=== PATIENT | female | born 1970 | race Caucasian/White ===

== ENCOUNTER 2024-12-22 11:09 | Outpatient (OUT) | payer OTHER, SELFPAY ==
--- NOTE | 2024-12-22 11:09 | ECG_ITS ---
[facility] Test Date: 2024-12-22 Pat Name: ANDRY FANG Department: Room: - Gender: Female Head Porter: : 1970 Requested By: JUANITO CORONA Order Number: [id number] Reading MD: DEEPAK ESPARZA Measurements Intervals [place] Rate: 72 P: 51 [place]: 145 QRS: 44 QRSD: 86 T: 60 QT: 366 QTc: 402 Interpretive Statements SINUS RHYTHM No previous ECG available for comparison Electronically Signed On 12-22-2024 16:01:35 EDT by DEEPAK ESPARZA
== END 2024-12-22 11:10 | disposition home or self-care (01) ==
PROVIDERS: PCP Family Medicine; Visit Provider Obstetrics & Gynecology
DX: Z01.810 Encounter for preprocedural cardiovascular examination (principal); N95.0 Postmenopausal bleeding
CPT/HCPCS: 93005

== ENCOUNTER 2025-01-31 13:25 | Outpatient (OUT) | payer OTHER, SELFPAY ==
--- OUTSIDE RECORDS SUMMARY | 2024-08-12 07:00 | XMS_ITS ---
Author Organization The [facility] in [place] Address [address] [place] [address] Care Team Providers Care Manufacturing Plant Manager Name Role Phone Eamon Paz DO Primary Care Provider Unavailab Georgette Baer Unavailable [phone] REASON FOR VISIT bm cyst removal chest Encounters Encounter Location Date Provider Diagnosis [facility] [address] [place] [address] 08/12/2024 Georgette Astudillo Neoplasm of uncertai n behavior of skin D48.5 ; Other specified erythematous conditions L53.8 ; Other disturbances of skin sensation R20.8 and Actinic keratosis L57.0 Assessments Encounter Date Diagnosis (ICD Code) Assessment Notes Treatment Notes Treatment Clinical Notes Section Notes 08/12/2024 Neoplasm of uncertain behavior of skin (ICD-10 - D48.5) 08/12/2024 Other specified erythematous conditions (ICD-10 - L53.8) 08/12/2024 Other disturbances of skin sensation (ICD-10 - R20.8) 08/12/2024 Actinic keratosis (ICD-10 - L57.0) Plan Of Treatment No Information Progress Notes * FATIMAHDEBBIE Rosey ADOB:1970 (54 yo F)Acc No.[id number]:08/12/2024 UNLOCKED PROGRESS NOTE Patient: Rosey CHOI Provider: Ida Astudillo DNP, OPERATIONS LOGISTICS ANALYST-C :1970 A ge:53 Y S ex:Female Date:08/12/2024 Address:[address] [place] [address], [id number] Pcp:Eamon Paz, DO Check In:10:54 AM ESTCheck O ut:11:41 AM EST Subjective: * Chief Complaints: * 1 . Bm cyst removal chest. * Medical History: Objective: * Vitals: Assessment: * Assessment: 1. N eoplasm of uncertain behavior of skin - D48.5 2 . O ther specified erythematous conditions - L53.8 3 . O ther disturbances of skin sensation - R20.8? 4. A ctinic keratosis - L57.0 Plan: * Treatment: * Procedure Codes: 2030 LAYER BRAVO WOUND TRUNK,EXT, TthNo: 59, Srfc: , Modifiers: 59 , 78422 BENIGN LESION 1.12.0 CM, 16552 DESTROY BENIGN/PREMLG LESION, TthNo: 59, Srfc: , Modifiers: 59 * * Electronic signature of Georgette Astudillo DNP on 01/31/2025 at 01:28 PM EDT Sign off status: Pending Visit Status: Leigh HANNA (Check Out) * Provider: Ida Astudillo DNP, OPERATIONS LOGISTICS ANALYST-C Date: 0 08/12/2024 Generated for Kevin clinton/Chasity/eTransmitting on: 1 01:28 PM EDT
--- OUTSIDE RECORDS SUMMARY | 2024-08-12 07:00 | XMS_ITS ---
Author Organization [facility] in [place] Address [address] [place] [address] Care Team Providers Care Rural Mail Carrier Name Role Phone Eamon Paz DO Primary Care Provider Unavailab Georgette Baer Unavailable [phone] REASON FOR VISIT bm botox gummy smile Encounters Encounter Location Date Provider Diagnosis [facility] [address] [place] [address] 08/12/2024 Georgette Astudillo Encounter for procedure for purposes other than remedying health state, unspecified Z41.9 Assessments Encounter Date Diagnosis (ICD Code) Assessment Notes Treatment Notes Treatment Clinical Notes Section Notes 08/12/2024 Encounter for procedure for purposes other than remedying health state, unspecified (ICD-10 - Z41.9) Plan Of Treatment No Information Progress Notes * FATIMAHRosey LEWIS ADOB:1970 (54 yo F)Acc No.[id number]:08/12/2024 UNLOCKED PROGRESS NOTE Patient: Rosey CHOI Provider: Ida Astudillo DNP, PBX TECHNICIAN-C :1970 A ge:53 Y S ex:Female Date:08/12/2024 Address:[address] [place] [phone] Pcp:Eamon Paz DO Check In:10:54 AM ESTCheck O ut:11:41 AM EST Subjective: * Chief Complaints: * 1 . Bm botox gummy smile. * Medical History: Objective: * Vitals: Assessment: * Assessment: 1. E ncounter for procedure for purposes other than remedying health state, unspecified - Z41.9? Plan: * Treatment: * Procedure Codes: B OTOX Cosmetic Botox * * Electronic signature of Georgette Astudillo DNP on 01/31/2025 at 01:27 PM EDT Sign off status: Pending Visit Status: C HK (Check Out) * Provider: Ida Astudillo DNP, PBX TECHNICIAN-C Date: 0 08/12/2024 Generated for Kevin clinton/Chasity/Iris on: 1 01:27 PM EDT
--- OUTSIDE RECORDS SUMMARY | 2024-08-26 10:45 | XMS_ITS ---
Author Organization [facility] in [place] Address [address] [place] [address] Care Team Providers Care Ski Tow Operator Name Role Phone Eamon Paz DO Primary Care Provider Unavailab Georgette Baer Unavailable [phone] REASON FOR VISIT bm TCA peel 1 Encounters Encounter Location Date Provider Diagnosis [facility] [address] [place] [address] 08/26/2024 Georgette Astudillo Other skin changes due to chronic exposure to nonionizing radiation L57.8 ; Encounter for removal of sutures Z48.02 and Actinic keratosis L57.0 Assessments Encounter Date Diagnosis (ICD Code) Assessment Notes Treatment Notes Treatment Clinical Notes Section Notes 08/26/2024 Other skin changes due to chronic exposure to nonionizing radiation (ICD-10 - L57.8) 08/26/2024 Encounter for removal of sutures (ICD-10 - Z48.02) 08/26/2024 Actinic keratosis (ICD-10 - L57.0) Plan Of Treatment No Information Progress Notes * AMANUELDEBBIE Rosey ADOB:1970 (54 yo F)Acc No.[id number]:08/26/2024 UNLOCKED PROGRESS NOTE Established Patient: Rosey CHOI Provider: Ida Astudillo DNP, PUPPET MASTER-C :1970 A ge:53 Y S ex:Female Date:08/26/2024 Address:[address] [place] [phone] Pcp:Eamon C Girvin, DO Check In:02:45 PM ESTCheck O ut:03:20 PM EST Subjective: * Chief Complaints: * 1 . bm TCA peel 1. * Medical History: Objective: * Vitals: Assessment: * Assessment: 1. O ther skin changes due to chronic exposure to nonionizing radiation - L57.8 ?2. E ncounter for removal of sutures - Z48.02 3 . A ctinic keratosis - L57.0 Plan: * Treatment: * Procedure Codes: 1 7004 DESTROY LESIONS, 15 OR MORE * * Electronic signature of Georgette Astudillo DNP on 01/31/2025 at 01:27 PM EDT Sign off status: Pending Visit Status: Leigh HANNA (Check Out) * Provider: Ida Astudillo DNP, PUPPET MASTER-C Date: 0 08/26/2024 Generated for Kevin clinton/Chasity/Iris on: 1 01:27 PM EDT
--- OUTSIDE RECORDS SUMMARY | 2024-10-14 10:45 | XMS_ITS ---
Author Organization The [facility] in [place] Address [address] [place] [address] Care Team Providers Care Radio Installer Automobile Name Role Phone Eamon Paz DO Primary Care Provider Unavailab Georgette Baer Unavailable [phone] REASON FOR VISIT bm TCA peel 2 Encounters Encounter Location Date Provider Diagnosis [facility] [address] [place] [address] 10/14/2024 Georgette Astudillo Actinic keratosis L57.0 Assessments Encounter Date Diagnosis (ICD Code) Assessment Notes Treatment Notes Treatment Clinical Notes Section Notes 10/14/2024 Actinic keratosis (ICD-10 - L57.0) Plan Of Treatment No Information Progress Notes * FATIMAHDaphne LEWISfer ADOB:1970 (54 yo F)Acc No.[id number]:10/14/2024 UNLOCKED PROGRESS NOTE Established Patient: Rosey CHOI Provider: Ida Astudillo DNP, CLIP LOADING MACHINE ADJUSTER-C :1970 A ge:53 Y S ex:Female Date:10/14/2024 Address:[address] [place] [phone] Pcp:Eamon Paz DO Check In:02:50 PM ESTCheck O ut:03:12 PM EST Subjective: * Chief Complaints: * 1 . bm TCA peel 2. * Medical History: Objective: * Vitals: Assessment: * Assessment: 1. A ctinic keratosis - L57.0 Plan: * Treatment: * Procedure Codes: 1 7004 DESTROY LESIONS, 15 OR MORE * * Electronic signature of Georgette Astudillo DNP on 01/31/2025 at 01:28 PM EDT Sign off status: Pending Visit Status: Leigh HANNA (Check Out) * Provider: Ida Astudillo DNP, CLIP LOADING MACHINE ADJUSTER-C Date: 0 10/14/2024 Generated for Kevin clinton/Chasity/Iris on: 1 01:28 PM EDT
--- OUTSIDE RECORDS SUMMARY | 2024-11-11 10:45 | XMS_ITS ---
Author Organization The [facility] in [place] Address [address] [place] [address] Care Team Providers Care Hydrostatic Tubing Tester Name Role Phone Eamon Paz DO Primary Care Provider Unavailab ANAIS Fernández Unavailable [phone] REASON FOR VISIT bm TCA peel 3 Encounters Encounter Location Date Provider Diagnosis [facility] [address] [place] [address] 11/11/2024 ANAIS MALIN Actinic keratosis L57.0 Assessments Encounter Date Diagnosis (ICD Code) Assessment Notes Treatment Notes Treatment Clinical Notes Section Notes 11/11/2024 Actinic keratosis (ICD-10 - L57.0) Plan Of Treatment No Information Progress Notes * LEONCIODaphneRosey ADOB:1970 (54 yo F)Acc No.[id number]:11/11/2024 UNLOCKED PROGRESS NOTE Established Patient: Rosey CHOI Provider: Ida MALIN DNP, WEB PRESS OPERATOR ASSISTANT-C :1970 A ge:53 Y S ex:Female Date:11/11/2024 Address:[address] [place] [address] Pcp:Eamon Paz DO Check In:02:45 PM ESTCheck O ut:03:08 PM EST Subjective: * Chief Complaints: * 1 . bm TCA peel 3. * Medical History: Objective: * Vitals: Assessment: * Assessment: 1. A ctinic keratosis - L57.0 Plan: * Treatment: * Procedure Codes: 1 7004 DESTROY LESIONS, 15 OR MORE * * Electronic signature of ANAIS MALIN DNP on 01/31/2025 at 01:27 PM EDT Sign off status: Pending Visit Status: Leigh HANNA (Check Out) * Provider: Ida MALIN DNP, WEB PRESS OPERATOR ASSISTANT-C Date: 0 11/11/2024 Generated for Kevin clinton/Chasity/Iris on: 1 01:27 PM EDT
--- OUTSIDE RECORDS SUMMARY | 2025-01-20 14:15 | XMS_ITS | Encounter Summary ---
Author Organization Former[facility] Address [address] [place] [address] Care Team Providers Care Grounds Maintenance Manager Name Role Phone Eamon Paz DO Primary Care Provider [phone] Reason for Visit * Reason Comments Eye Problem Encounter Details Date Type Department Care Team (Latest Contact Info) Description 01/20/2025 2:15 PM EDT Office Visit [facility] [address] [place] [place] [address] Dhara Carrera MD [address] [facility] [place] [place] [address] Ocular hypertension, bilateral (Primary Dx); Plateau iris configuration; Dry eye Social History Tobacco Use Types Packs/Day Years Used Date Smoking Tobacco: Never Assessed [facility] Utilities Answer Date Recorded In the past 12 months has [employer] electric, gas, oil, or water [email or web address] threatened to shut off services in your home? No 01/20/2025 Hunger Vital Sign Answer Date Recorded Within the past 12 months, y ou worried that your food would run out before you got the money to buy more. Never true 01/21/20 25 Within the past 12 months, t he food you bought just didn't last and you didn't have money to get more. Never true 01/20/2025 [facility] - Inadequate Housing Answer Date Re corded What is your living situation today? I have a [facility] place to live 01/20/[address] you li ve. Do you have problems with any of the following? None of the above 01/20/2025 [facility] - Transportation Answer Date Record ed In the past 12 months, has l ack of reliable transportation kept you from medical appointments, meetings, work or from getting things needed for daily living? No 01/20/2025 [facility] - Financial Strain Answer Date Neftali rded How hard is it for you to pa y for the very basics like food, housing, medical care, and heating? Would you say it is: Patient declined 01/20/2025 Job Training Answer Date Recorded Do you have a hard time find ing work or another steady source of income? No 01/20/2025 Do you need help finding a [facility] career center and/or job training? No 01/20/2025 Child or Elder Care Answer Date Recorde d In the last 4 weeks, did get ting exceptional children's teacher, elder care, or care for another person make it difficult to work, study, or get to medical visits? 2 No 01/20/2025 Virtual Care Answer Date Recorded How would you describe your comfort level with using technology (smart phones, mobile apps, patient portals) to access your health care? Rather comfortable 01/20/2025 Do you have internet access in your home that would allow you to participate in a realtime video visit with your provider? Yes 01/20/2025 Do you have access to a roland ce that would allow you to participate in virtual care with your provider, such as a laptop, computer, smart phone or tablet? Yes Social Isolation Answer Date Recorded Within the last 12 months, h ow often do you feel isolated from others? Never 01/20/2025 Comments Unknown Sex and Gender Information Value Date Recorded Sex Assigned at Not on file Legal Sex Female 4:58 PM EDT Gender Identity Not on file Sexual Orientation Not on file documented as of this encounter Progress Notes * Dhara Carrera MD - 01/20/2025 3:24 PM EDT Tech Comments Rosey Castellano is a 54 y.o. female presents today for a dilate eye exam Patient states no change in vision since last visit. Denies any discomfort. Patient does not have any other ocular concerns. Ninfa Montenegro Impression/Plan: 1. 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 Will monitor for now, as optic nerves appear very healthy. 2. Dry eye - Artificial tears as needed, but at least BID 3. Refractive error - Follow-up with Dr. Florentino as scheduled 4. Cataract, both eyes - Not visually significant, though becoming functionally significant due to glare. - Discussed signs/symptoms of progression. - No indication for surgery at this time. Monitor. Follow-up in 1 year for dilated exam (Tropicamide only), sooner prn. Dhara Carrera MD documented in this encounter Plan of Treatment Upcoming Encounters Date Type Department Care Team (Late st Contact Info) Description 01/26/2026 1:30 PM EDT Office Visit [facility] [address] [place] [address] Ruth Florentino S, OD [address] [facility] [place] [address] 01/26/2026 2:15 PM EDT Office Visit [facility] [address] [place] [address] [place] [phone] Dhara Carrera MD [address] 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
--- OUTSIDE RECORDS SUMMARY | 2025-01-31 13:28 | XMS_ITS | Clinical Summary ---
Author Organization [facility] Address [address] [place] [address] Phone Care Team Providers Care Research Assistant Member Name Role Phone Eamon Paz DO Primary Care Provider [phone] Social History Tobacco Use Types Packs/Day Years Used Date Smoking Tobacco: Never Assessed Comments Unknown Sex and Gender Information Value Date Recorded Sex Assigned at Not on file Legal Sex Female 1:44 AM EST Gender Identity Not on file Sexual Orientation Not on file Plan of Treatment Not on file Care Teams Research Assistant Member Relationship Specialty Start Date End Date Eamon Paz DO PCP - General 04/28/1996
--- OUTSIDE RECORDS SUMMARY | 2025-01-31 13:28 | XMS_ITS | Clinical Summary ---
Author Organization [facility] Address [address], [address] [place] [address] Care Team Providers Care Underground Supervisor Name Role Phone Eamon Paz DO Primary Care Provider Unavail able Allergies Active Allergy Reactions Criticality Noted Date Comments Iodine Rash Low 04/25/2015 Lidocaine Itching,Other (See Comments) 04/25/2015 Flush skin Oxycodone Other (See Comments) 04/25/2015 Anxiety attacks Promethazine Other (See Comments) High 04/25/2015 Muscle spasms Metoclopramide 04/25/2015 Hydrocodone-Acetaminophen Itching 04/25/2015 Medications celecoxib (CELEBREX) 200 MG capsule 1 capsule daily 0 04/07/2015 Active traMADol (ULTRAM) 50 MG tablet 1 tablet 2 times daily. 0 04/06/2015 Active busPIRone (BUSPAR) 15 MG tablet Take 15 mg by mouth in the morning and 15 mg in the evening. Active venlafaxine (EFFEXOR XR) 75 MG extended release capsule take 1 capsule by mouth daily with food Active Semaglutide,0.2 5 or 0.5MG/DOS, 2 MG/3ML SOPN Inject into the skin Active Rimegepant Sulfate (NURTEC PO) Take by mouth Active Active Problems Problem Noted Date Diagnosed Date Primary osteoarthritis of right ankle 04/25/2015 Synovitis of right ankle 04/25/2015 Family History Medical History Relation Name Comments Cancer Father Diabetes Maternal Grandmother Cancer Paternal Aunt High Blood Pressure Paternal Grandfather Cancer Paternal Grandmother Cancer Sister Relation Name Status Comments Father Maternal Grandmother Paternal Aunt Paternal Grandfather Paternal Grandmother Sister Social History Tobacco Use Types Packs/Day Years Used Date Smoking Tobacco: Former Cigarettes Q uit: 05/24/2012 Tobacco Cessation:Counseling Given: Not Answered Alcohol Use Standard Drinks/Week Comments Yes 0 (1 standard drink = 0.6 oz pur e alcohol) very rare Comments No Sex and Gender Information Value Date Recorded Sex Assigned at Not on file Legal Sex Female 1:15 PM EST Gender Identity Not on file Sexual Orientation Not on file Last Filed Vital Signs Vital Sign Reading Time Taken Comments Blood Pressure 120/90 11/15/2015 2:45 PM EDT Pulse 80 11/15/2015 2:45 PM EDT Temperature 36.2 C (97.2 F) 11/15/2015 2:20 PM EDT Respiratory Rate 14 11/15/2015 2:45 PM EDT Oxygen Saturation 98% 11/15/2015 2:20 PM EDT Inhaled Oxygen Concentration - - Weight 99.8 kg (220 lb) 06/13/2023 10:01 AM EST Height 177.8 cm (5' 10 ) 06/13/2023 10:01 AM EST Body Mass Index 31.57 06/13/2023 10:01 AM EST Plan of Treatment Health Maintenance Due Date Last Done Comments Depression Screen 1984 HIV screen 12/05/1987 Hepatitis C screen 1990 Hepatitis B vaccine (1 of 3 - 19+ 3-dose series) 12/05/1991 Pap smear 1993 Cervical cancer screen 2002 HPV (without or with Pap) 2002 Breast cancer screen 2012 Lipids 2012 Colonoscopy 2017 Colorectal Cancer Screen 2017 FIT/FOBT: Average risk 2017 Fecal-DNA (Cologuard): [place] ge risk 2017 Sigmoidoscopy/CT colonography 2017 Pneumococcal 50+ years Vacci ne (2 of 2 - PCV) 2022 02/26/2018 Shingles vaccine (1 of 2) 2022 Flu vaccine (#1) 11/26/2024 COVID-19 Vaccine ( - 2023-2 5 season) 2024 DTaP/Tdap/Td vaccine (2 - Td or Tdap) 12/03/2032 12/03/2022 Pneumococcal 0-49 years Vaccine Discontinued 8 Hepatitis A vaccine Aged Out No longe r eligible based on patient's age to complete this topic Hib vaccine Aged Out No longer eligi ble based on patient's age to complete this topic Meningococcal (ACWY) vaccine Aged Out No longer eligible based on patient's age to complete this topic Meningococcal B vaccine Aged Out No l onger eligible based on patient's age to complete this topic Polio vaccine Aged Out No longer elig ible based on patient's age to complete this topic Insurance Care Teams Underground Supervisor Relationship Specialty Start Date End Date Eamon Paz DO [address] [place] [address] PCP - General Family Medicine 04/25/15
--- OUTSIDE RECORDS SUMMARY | 2025-01-31 13:28 | XMS_ITS | Clinical Summary ---
Author Organization [facility] Address [address] [place] [address] Care Team Providers Care Livestock Breeder Name Role Phone Eamon Paz DO Primary Care Provider [phone] Allergies Active Allergy Reactions Criticality Noted Date Comments Hydrocodone Unknown 12/26/2022 Hydrocodone-Acetaminophen Hives,Itching, Unkno wn 04/25/2015 Lidocaine Itching,Other (See Comments),Unknown 04/25/2015 Other reaction(s): Other (See Comments) Flush skin Flush skin Metoclopramide Unknown 04/25/2015 Oxycodone Other (See Comments) 04/25/2015 Other reaction(s): Other (See Comments) Anxiety attacks Anxiety attacks Phenergan W/Dextromethorphan Unknown 07/07/2017 Promethazine Other (See Comments) High 04/25/2015 Other reaction(s): Other (See Comments) Muscle spasms Muscle spasms Topical Iodine Hives,Rash-Mild,Unk nown Low 04/25/2015 Medications celecoxib (CeleBREX) 200 mg capsule Take 200 mg by mouth in the morning and 200 mg before bedtime. 5 Active clonazePAM (KlonoPIN) 0.5 mg tablet Take 0.25 mg by mouth as needed in the morning and 0.25 mg as needed in the evening. 7 Active latanoprost (XALATAN) 0.005 % ophthalmic solution 12/14/19 2 3 Active NURTEC ODT 75 mg disintegrating tablet 3 Active venlafaxine (EFFEXOR ER) 75 mg 24 hr capsule 3 Active Active Problems No known active problems Encounters Date Type Department Care Team Description 01/20/2025 2:15 PM EDT Office Visit [facility] [employer] [address] [place] [address] Dhara Carrera MD Ocular hypertension, bilateral (Primary Dx); Plateau iris configuration; Dry eye from Last 3 Months Social History Tobacco Use Types Packs/Day Years Used Date Smoking Tobacco: Never Assessed [facility] Utilities Answer Date Recorded In the past 12 months has th e electric, gas, oil, or water company threatened to shut off services in your home? No 01/20/2025 Hunger Vital Sign Answer Date Recorded Within the past 12 months, y ou worried that your food would run out before you got the money to buy more. Never true 01/21/20 Within the past 12 months, t he food you bought just didn't last and you didn't have money to get more. Never true 01/20/2025 [facility] - Inadequate Housing Answer Date Re corded What is your living situation today? I have a [facility] place to live 01/20/[address] you li ve. Do you have problems with any of the following? None of the above 01/20/2025 [facility] - Transportation Answer Date Record ed In the past 12 months, has l ack of reliable transportation kept you from medical appointments, meetings, work or from getting things needed for daily living? No 01/20/2025 [facility] - Financial Strain Answer Date Neftali rded How hard is it for you to pa y for the very basics like food, housing, medical care, and heating? Would you say it is: Patient declined 01/20/2025 Job Training Answer Date Recorded Do you have a hard time find ing work or another steady source of income? No 01/20/2025 Do you need help finding a l al career center and/or job training? No 01/20/2025 Child or Elder Care Answer Date Recorde d In the last 4 weeks, did get ting child psychology teacher, elder care, or care for another [...] Orientation Not on file Plan of Treatment Upcoming Encounters Date Type Department Care Team (Late st Contact Info) Description 01/26/2026 1:30 PM EDT Office Visit [facility] [address] [place] [address] Ruth Florentino, OD [address] [facility] [employer] [facility] [place] [address] 01/26/2026 2:15 PM EDT Office Visit [facility] [address] [place] [place] [address] Dhara Carrera MD [address] [facility] [address] [facility] [place] [phone] Health Maintenance Due Date Last Done Comments Cologuard (average risk only) 1970 Colonoscopy 1970 Colorectal Cancer Screening 1972 FIT (average risk only) 1972 Hepatitis C Screening 1972 Alternating Mammogram/MRI 1984 Hepatitis B Vaccine ages 19 years and older (1 of 3 - 19+ 3-dose series) 12/05/1991 Breast Cancer Screening 1992 Mammogram 1992 Cervical Cancer Screening: Cytology 1993 Pneumococcal Vaccines 50year s + (2 of 2 - PCV) 2022 02/26/2018 Zoster Recombinant Vaccines (1 of 2) 2022 COVID-19 Vaccine (1 - 2024-2 6 season) 2024 Influenza Vaccine (#1) 2024 DTaP,Tdap,and Td Vaccines (2 - Td or Tdap) 12/03/2032 12/03/2022 Respiratory Syncytial Virus (RSV) or ages 60 years and older (1 - 1-dose 75+ series) 12/05/2047 Respiratory Syncytial Virus (RSV) ages 0 thru 19 months Aged Out No longer eligible based on patient's age to complete this topic Insurance [facility] Care Teams Livestock Breeder Relationship Specialty Start Date End Date Eamon Paz DO [address] [place] [address] PCP - General Family Medicine 11/15/22
--- OUTSIDE RECORDS SUMMARY | 2025-01-31 13:28 | XMS_ITS | Encounter Summary ---
Author Organization [facility] Address [address] [place] [address] Care Team Providers Care Elementary School Counselor Name Role Phone Eamon Paz MD Primary Care Provider [phone] Tim Pritchard DO Unavailable Encounter Details Date Type Department Care Team ([facility] Contact Info) Description 12/08/2024 Abstract [facility] [address] [place] [address] Jose Alberto Keyes DO [address] [place], [place] [address] Social History Tobacco Use Types Packs/Day Years Used Date Smoking Tobacco: Former Cigarettes Q uit: 01/10/2013 Comments:Last smoked : >10 y ears Alcohol Use Standard Drinks/Week Comments Yes 1 (1 standard drink = 0.6 oz pure alcohol) caffeine intake : 1-2 cups per day Comments No Sex and Gender Information Value Date Recorded Sex Assigned at Not on file Legal Sex Female 7:19 PM EDT Gender Identity Not on file Sexual Orientation Not on file 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 Not on fi le Not on file documented as of this encounter Plan of Treatment Upcoming Encounters Date Type Department Care Team ([facility] Contact Info) Description 02/15/2025 10:50 AM EDT Office Visit [facility] [address] [place] [address] Jose Alberto Keyes DO [address] [place] [address] [address] [place], [place] [id number] documented as of this encounter Visit Diagnoses Not on filedocumented in this encounter Care Teams Elementary School Counselor Relationship Specialty Start Date End Date Eamon Paz MD [address] [place], [place] [id number] PCP - General Family Medicine 01/21/23 Tim Pritchard DO [address] [place] [address] Otolaryngology 03/15/24 documented as of this encounter
--- OUTSIDE RECORDS SUMMARY | 2025-01-31 13:28 | XMS_ITS | Encounter Summary ---
Author Organization [facility] Address [address] [place] [address] Care Team Providers Care Pulverizer Name Role Phone Eamon Paz MD Primary Care Provider [phone] Tim Pritchard DO Unavailable [phone] Encounter Details Date Type Department Care Team (Latest Contact Info) Description 12/10/2024 Results Follow-Up [facility] [address] [place] [phone] Donna Soto MA US pelvis transvaginal Social History Tobacco Use Types Packs/Day Years [...] Industry Job Start Date Job End Date [employer] Not on file Not on fi le Not on file documented as of this encounter Plan of Treatment Upcoming Encounters Date Type Department Care Team (Late st Contact Info) Description 02/15/2025 10:50 AM EDT Office Visit [facility] [address] [facility] [phone] Jose Alberto Keyes DO [address] [place] [address] documented as of this encounter Visit Diagnoses Not on filedocumented in this encounter Care Teams Pulverizer Relationship Specialty Start Date End Date Eamon Paz MD [address] [place] [address] PCP - General Family Medicine 01/21/23 Tim Pritchard DO [address] [place] [address] Otolaryngology 03/15/24 documented as of this encounter
--- OUTSIDE RECORDS SUMMARY | 2025-01-31 13:28 | XMS_ITS | Encounter Summary ---
Author Organization [facility] Address [address] [place] [address] Care Team Providers Care Business Specialist Name Role Phone Eamon Paz MD Primary Care Provider [phone] Tim Pritchard Albaro DO Unavailable [phone] Encounter Details Date Type Department Care Team (Late Contact Info) Description 07/07/2023 Abstract [facility] [place] [facility] [address] [place] [address] Aruna Garner MA Social History Tobacco Use Types Packs/Day Years Used Date Smoking Tobacco: Former Cigarettes Q uit: 01/10/2013 Comments:Last smoked : >10 y ears Alcohol Use Standard Drinks/Week Comments Yes 1 (1 standard drink = 0.6 oz pure alcohol) caffeine intake : 1-2 cups per day Comments Unknown Sex and Gender Information Value Date Recorded Sex Assigned at Not on file Legal Sex Female 7:19 PM EDT Gender Identity Not on file Sexual Orientation Not on file 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 fi le Not on file documented as of this encounter Plan of Treatment Upcoming Encounters Date Type Department Care Team (Late Contact Info) Description 02/15/2025 10:50 AM EDT Office Visit [facility] [address] [place] [address] Jose Alberto Keyes DO [address] [place] [address] documented as of this encounter Visit Diagnoses Not on filedocumented in this encounter Care Teams Business Specialist Relationship Specialty Start Date End Date Eamon Paz MD [address] [place] [address] [place] [address] PCP - General Family Medicine 01/21/23 Tim Pritchard DO [address] [place] [address] Otolaryngology 03/15/24 documented as of this encounter
--- OUTSIDE RECORDS SUMMARY | 2025-01-31 13:28 | XMS_ITS | Clinical Summary ---
Author Organization [facility] Address [address] [place] [address] Care Team Providers Care Bean Snapper Name Role Phone Eamon Paz MD Primary Care Provider [phone] Tim Pritchard DO Unavailable [phone] Allergies Active Allergy Reactions Criticality Noted Date Comments Alprazolam 01/21/2023 Other Reaction(s): twiching Buspirone 01/21/2023 Other Reaction(s): wierd dreams Citalopram 01/21/2023 Other Reaction(s): unable to tolerate Cortisone 01/21/2023 Other Reaction(s): itching, facial swelling Guaifenesin 01/27/2024 Other Reaction(s): chest pain Hydrocodone Unknown 12/26/2022 Hydrocodone-Acetaminophen 01/21/2023 Other Reaction(s): hives and itching, itches Iodine Rash,Unknown Low 04/25/2015 Other Reaction(s): Hives Lidocaine Itching,Unknown 04/25/2015 Other reaction(s): Other (See Comments) Flush skin Flush skin Other reaction(s): Other (See Comments) Flush skin Flush skin Metoclopramide Unknown 04/25/2015 Naproxen 01/27/2024 Other Reaction(s): does not work Oxycodone Unknown 04/25/2015 Other reaction(s): Other (See Comments) Anxiety attacks Anxiety attacks Other reaction(s): Other (See Comments) Anxiety attacks Anxiety attacks Oxycodone-Acetaminophen 01/21/2023 Other Reaction(s): panic attacks Procaine 01/27/2024 Other Reaction(s): Itching Promethazine Unknown 01/21/2023 Pseudoephedrine 01/27/2024 Other Reaction(s): chest pain Pseudoephedrine-Guaifenesi n Er 01/21/2023 Other Reaction(s): chest pain Topiramate 01/27/2024 Other Reaction(s): increased eye pressure/glaucoma Medications celecoxib (CeleBREX) 200 MG capsule Take 200 mg by mouth in the morning. Active clonazePAM (KlonoPIN) 0.5 MG tablet Take 0.25 mg by mouth 2 (two) times a day as needed. Active valACYclovir (Valtrex) 1 g tablet Take 1,000 mg by mouth in the morning and 1,000 mg in the evening and 1,000 mg before bedtime. 3 Active venlafaxine XR (Effexor XR) 75 MG 24 hr capsule 3 Active RIMEGEPANT SULFATE PO Take by mouth Activ e tobramycin (Tobrex) 0.3 % ophthalmic solution instill 2 drops into both eyes every 2 to 3 hours for 2 days then... (REFER TO PRESCRIPTION NOTES). 4 Active valACYclovir (Valtrex) 500 MG tablet Take 500 mg by mouth Daily 5 Active megestrol (Megace) 20 MG tabletIndicati ons:Irregular bleeding,Avelino rhagia with irregular cycle 1 tab po x3 days and then 1 tab po daily 12 tablet 5 Active norethindrone- ethinyl estradiol (Femhrt Low Dose) 0.5-2.5 MG-MCG tabletIndicati ons:Premenstru al dysphoric disorder Take 1 tablet by mouth Daily 90 tablet 2 5 026 Active norethindrone- ethinyl estradiol (Femhrt Low Dose) 0.5-2.5 MG-MCG tabletIndicati ons:Premenstru al dysphoric disorder Take 1 tablet by mouth Daily 30 tablet 1 5 025 Discontin ued(Reord er) Active Problems Problem Noted Date Diagnosed Date Disability of walking 05/04/2023 Lateral epicondylitis, right elbow 05/04/2023 Pain of foot 05/04/2023 Abnormal mammogram 01/20/2023 Absence of bladder continence 01/20/2023 Alkaline phosphatase raised 01/20/2023 Anemia 01/20/2023 Arthritis 01/20/2023 Cephalgia 01/20/2023 Cough 01/20/2023 Dense breast tissue 01/20/2023 Fibrocystic breast changes 01/20/2023 Ganglion cyst of wrist 01/20/2023 Hyperlipidemia 01/20/2023 Hypertrophy of nasal turbinates 01/20/2023 Irregular periods 01/20/2023 Menopausal symptom 01/20/2023 Menstrual disorder 01/20/2023 Multiple thyroid nodules 01/20/2023 Nontoxic single thyroid nodule 01/20/2023 Spondylolisthesis, lumbar region 01/20/2023 Thyroid nodule 01/20/2023 Primary osteoarthritis of right ankle 04/25/2015 Synovitis of right ankle 04/25/2015 Resolved Problems Problem Noted Date Diagnosed Date Resolved Date Chronic sinusitis 03/12/2024 03/12/2024 Ecchymosis 03/12/2024 03/12/2024 Encounter for colonoscopy du e to history of adenomatous colonic polyps 03/12/2024 03/12/2024 Family history of colon canc er requiring screening colonoscopy 03/12/2024 03/12/2024 Fatigue 03/12/2024 03/12/2024 Myalgia 03/12/2024 03/12/2024 Restless legs syndrome 03/12/202403/12 URI (upper respiratory infection) 03/12/2024 03/12/2024 Weight gain 03/12/2024 03/12/2024 Encounters Date Type Department Care Team Description 01/15/2025 Refill [facility] [address] [place] [address] Betzy Randolph CNM Premenstrual dysphoric disorder 01/04/2025 [facility] [address] [facility] [place] [address] Eamon Paz MD 12/22/2024 Abstract [facility] [address] [place] [address] Juanito Keyes, 12/22/2024 Clinisync Result Encounter [facility] External Department Unsolicited Juanito Keyes, 12/10/2024 Results Follow-Up [facility] [facility] [place] [address] Donna Soto [facility] pelvis transvaginal 12/08/2024 1:00 PM EDT Consult [facility] [address] [place] [address] [place] [address] Juanito Keyes, Pre-op examination; Menorrhagia with regular cycle; Post-menopausal bleeding 12/08/2024 Abstract [facility] [place] [facility] [address] [place] [address] [place] [address] Juanito Keyes, 12/06/2024 3:00 PM EDT [facility] [address] [place] [address] Irregular bleeding 12/06/2024 2:30 PM EDT [facility] [address] [place] [address] Betzy Randolph CNM Menorrhagia with irregular cycle (Primary Dx); Irregular bleeding 12/06/2024 Travel from Last 3 Months Immunizations Immunization Administration Dates Next Due Pneumococcal Polysaccharide PPSV23 02/26/2018 Tdap 12/03/2022 Family History Medical History Relation Name Comments Colon cancer Father Heart disease Father's Brother Leukemia Father's Brother Colon cancer Father's Sister Diabetes Maternal Grandmother Rheum arthritis Mother degenerative disc disease Mother thyroid problems Mother Diabetes Mother's Sister Heart disease Paternal Grandfather Colon cancer Paternal Grandmother Asthma Sibling Breast cancer Sister Colon cancer Sister Asthma Son Relation Name Status Comments Father Father's Brother Alive Father's Sister Alive Maternal Grandfather Maternal Grandmother Mother Alive Mother's Sister Alive Paternal Grandfather Paternal Grandmother Sibling Alive Sister 1 sister Son Alive Social History Tobacco Use Types Packs/Day Years Used Date Smoking Tobacco: Former Cigarettes Q uit: 01/10/2013 Tobacco Cessation:Counseling Given: Not Answered Comments:Last smoked : >10 years Alcohol Use Standard Drinks/Week Comments Yes 1 (1 standard drink = 0.6 oz pure alcohol) caffeine intake : 1-2 cups per day Comments No Sex and Gender Information Value Date Recorded Sex Assigned at Not on file Legal Sex Female 7:19 PM EDT Gender Identity Not on file Sexual Orientation Not on file Occupation Industry Job Start Date Job End Date [employer] Not on file Not on fi le Not on file Last Filed Vital Signs Vital Sign Reading Time Taken Comments Blood Pressure 122/82 12/08/2024 1:05 PM EDT Pulse 78 12/06/2024 2:36 PM EDT Temperature - - Respiratory Rate 18 12/06/2024 2:36 PM EDT Oxygen Saturation 99% 12/06/2024 2:36 PM EDT Inhaled Oxygen Concentration - - Weight 78.2 kg (172 lb 8 oz) 12/08/2024 1:05 PM EDT Height 177.8 cm (5' 10 ) 12/08/2024 1:05 PM EDT Body Mass Index 24.75 12/08/2024 1:05 PM EDT Plan of Treatment Upcoming Encounters Date Type Department Care Team (Late st Contact Info) Description 02/15/2025 10:50 AM EDT Office Visit [facility] [place] [facility] [address] [place] [address] Juanito Keyes DO [address] [facility] [place] [address] Procedures Procedure Name Priority Date/Time Associated Diagnosis Comments ECG 12-LEAD 12/22/2024 9:38 AM EDT US PELVIS TRANSVAGINAL Routine 12/06/2024 3:31 PM EDT Irregular bleeding from Last 3 Months Results * ECG 12-LEAD (12/22/2024 9:38 AM EDT) Anatomical Region Laterality Modality Other 12/22/2024 9:38 AM EDT Narrative 12/22/2024 4:01 PM EDT [facility] [place] [id number] Electrocardiograph Report Signed Patient: ROSEY CASTELLANO MR#: [id number] : 1970 Acct:[id number] Age/Sex: 54 / F ADM Date: 12/22/24 Loc: PST Attending Dr: Juanito Keyes D.O. Ordering Physician: Juanito Keyes D.O. Date of Service: 12/22/24 Procedure(s): ECG 12 lead Accession Number(s): [id number] cc: [facility] Test Date: 2024-12-22 Pat Name: ROSEY CASTELLANO Department: Room: - Gender: Female Cone Trucker: : 1970 Requested By: JUANITO KEYES Order Number: [id number] Reading MD: WOLF FLOREZ Measurements Intervals Slemp Rate: 72 P: 51 NJ: 145 QRS: 44 QRSD: 86 T: 60 QT: 366 QTc: 402 Interpretive Statements SINUS RHYTHM No previous ECG available for comparison Electronically Signed On 12-22-2024 16:01:35 EDT by WOLF FLOREZ Dictated By: Wolf Florez M.D. Signed By: 12/22/24 1601 DD/ 0938 TD/TT: Agriculture Technician: Procedure Note Radiology, Radiologist, MD - 12/22/2024 [facility] [place] [id number] Electrocardiograph Report Signed Patient: ROSEY CASTELLANOMR#: [id number] : 1970Acct:[id number] Age/Sex: 54 / FADM Date: 12/22/24 Loc: PST Attending Dr: Juanito Keyes D.O. Ordering Physician: Juanito Keyes D.O. Date of Service: 12/22/24 Procedure(s): ECG 12 lead Accession Number(s): [id number] cc: [facility] Test Date: 2024-12-22 Pat Name: ROSEY CASTELLANO Department: Room: - Gender: Female Cone Trucker: : 1970 Requested By: JUANITO KEYES Order Number: [id number] Reading MD: WOLF FLOREZ Measurements Intervals Slemp Rate: 72 P: 51 NJ: 145 QRS: 44 QRSD: 86 T: 60 QT: 366 QTc: 402 Interpretive Statements SINUS RHYTHM No previous ECG available for comparison Electronically Signed On 12-22-2024 16:01:35 EDT by WOLF FLOREZ Dictated By: Wolf Florez M.D. Signed By:12/22/24 1601 DD/ 0938 TD/TT: Agriculture Technician: us Juanito Keyes DO [facility] Final Result * US pelvis transvaginal (12/06/2024 3:31 PM EDT) Anatomical Region Laterality Modality Pelvis Ultrasound 12/07/2024 1:55 PM EDT Impressions 12/07/2024 1:58 PM EDT Impression: Unremarkable ultrasound of the female pelvis. ELECTRONICALLY SIGNED BY: Wyatt Ramos MD Narrative 12/07/2024 1:58 PM EDT Exam: US PELVIS TRANSVAGINAL History: Dysfunctional uterine bleeding. Postmenopausal bleeding.. History of polyp removal. Technique: Sonography of the pelvis performed by transvaginal Comparison: Ultrasound 09/03/2024. Result: Uterus: Orientation: Anteverted. Size: 7.9 x 4.2 x 4.9 cm. Myometrium: Mildly heterogeneous echotexture Endometrial Echo complex: 0.4 cm. Cervix: Nabothian cysts. Right ovary: 1.2 cm anechoic cyst/follicle. Size: 1.9 x 1.1 x 1.5 cm Complex cyst or solid mass: None. Left ovary: Size: 1.7 x 1.4 x 1.0 cm Complex cyst or solid mass: None. Free Fluid:None. Procedure Note Wyatt Ramos MD - 12/07/2024 Exam: US PELVIS TRANSVAGINAL History: Dysfunctional uterine bleeding. Postmenopausal bleeding.. Historyof polyp removal. Technique: Sonography of the pelvis performed by transvaginal Comparison: Ultrasound 09/03/2024. Result: Uterus: Orientation: Anteverted. Size: 7.9 x 4.2 x 4.9 cm. Myometrium: Mildly heterogeneous echotexture Endometrial Echo complex: 0.4 cm. Cervix: Nabothian cysts. Right ovary: 1.2 cm anechoic cyst/follicle. Size: 1.9 x 1.1 x 1.5 cm Complex cyst or solid mass: None. Left ovary: Size: 1.7 x 1.4 x 1.0 cm Complex cyst or solid mass: None. Free Fluid:None. IMPRESSION: Impression: Unremarkable ultrasound of the female pelvis. ELECTRONICALLY SIGNED BY: Wyatt Ramos MD us [facility] IM[facility] US PROCEDURES Final Resu lt from Last 3 Months Insurance [employer] Care Teams Bean Snapper Relationship Specialty Start Date End Date Eamon Paz MD [address] [facility] [place] [address] [place] [address] PCP - General Family Medicine 01/21/23 Tim Pritchard DO [address] [place] [address] Otolaryngology 03/15/24
--- OUTSIDE RECORDS SUMMARY | 2025-01-31 13:28 | XMS_ITS | Encounter Summary ---
Author Organization [facility] Address [address] [place] [address] Care Team Providers Care Welfare Visitor Name Role Phone Eamon Paz MD Primary Care Provider [phone] Tim Pritchard DO Unavailable [phone] Reason for Visit * Reason Onset Date Comments Med Refill 01/15/2025 Encounter Details Date Type Department Care Team (Late Contact Info) Description 01/15/2025 Refill [facility] [address] [place] [address] Betzy Randolph, [facility] [address] [place] [address] Premenstrual dysphoric disorder Social History Tobacco Use Types Packs/Day Years [...] Industry Job Start Date Job 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 on file Not on fi le Not on file documented as of this encounter Plan of Treatment Upcoming Encounters Date Type Department Care Team (Late st Contact Info) Description 02/15/2025 10:50 AM EDT Office Visit [facility] [place] [facility] [address] [facility] [address] Jose Alberto Keyes DO [address] [facility] [place] [address] documented as of this encounter Visit Diagnoses Diagnosis Premenstrual dysphoric disorder Premenstrual tension syndromes documented in this encounter Care Teams Welfare Visitor Relationship Specialty Start Date End Date Eamon Paz MD [address] [place] [address] PCP - General Family Medicine 01/21/23 Tim Pritchard DO [address] [place] [address] Otolaryngology 03/15/24 documented as of this encounter
--- OUTSIDE RECORDS SUMMARY | 2025-01-31 13:29 | XMS_ITS | Encounter Summary ---
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 Not on fi le Not on file documented as of this encounter Plan of Treatment Upcoming Encounters Date Type Department Care Team ( st Contact Info) Description 02/15/2025 10:50 AM EDT Office Visit [facility] [address] [facility] [place] [address] Jose Alberto Keyes DO [address] [place] [address] [place] [address] documented as of this encounter Visit Diagnoses Not on filedocumented in this encounter Care Teams Sub Arc Operator Relationship Specialty Start Date End Date Eamon Paz MD [address] [place] [address] PCP - General Family Medicine 01/21/23 Tim Pritchard DO [address] [place] [address] Otolaryngology 03/15/24 documented as of this encounter
--- OUTSIDE RECORDS SUMMARY | 2025-01-31 13:29 | XMS_ITS | Encounter Summary ---
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 on file Not on le Not on file documented as of this encounter Plan of Treatment Upcoming Encounters Date Type Department Care Team (Late Contact Info) Description 02/15/2025 10:50 AM EDT Office Visit [facility] [address] [place] [address] [place] [address] Jose Alberto Keyes DO [address] [place] [address] [address] [place], [place] [id number] documented as of this encounter Visit Diagnoses Not on filedocumented in this encounter Care Teams Strike Off Machine Operator Relationship Specialty Start Date End Date Eamon Paz MD [address] [place] [address] PCP - General Family Medicine 01/21/23 Tim Pritchard DO [address] [place] [address] Otolaryngology 03/15/24 documented as of this encounter
--- OUTSIDE RECORDS SUMMARY | 2025-01-31 13:29 | XMS_ITS | Clinical Summary ---
Author Organization [facility] Address [address] [place] [address] Care Team Providers Care Employee Relations Specialist Name Role Phone Eamon aPz Primary Care Provider [phone] Allergies Active Allergy Reactions Criticality Noted Date Comments Hydrocodone-Acetaminophen Itching 04/25/2015 Iodine Rash Low 04/25/2015 Lidocaine Itching 04/25/2015 Other reaction(s): Other (See Comments) Flush skin Metoclopramide 04/25/2015 Oxycodone 04/25/2015 Other reaction(s): Other (See Comments) Anxiety attacks Promethazine High 04/25/2015 Other reaction(s): Other (See Comments) Muscle spasms Medications celecoxib 200 MG Cap capsule Take 200 mg by mouth daily. 1 04/28/2017 Active traMADol 50 MG Tab tablet Take 50 mg by mouth daily. 04/06/2015 Active buPROPion 300 MG tablet XL Take 300 mg by mouth daily. 0 04/26/2017 Active clonazePAM 0.5 MG Tab tablet Take 0.5 mg by mouth at bedtime. 0 04/03/2017 Active Family History Medical History Relation Name Comments Colorectal Cancer Father Colorectal Cancer Maternal Aunt Colorectal Cancer Paternal Grandmother Breast Cancer Sister Colorectal Cancer Sister Relation Name Status Comments Father Maternal Aunt Paternal Grandmother Sister Social History Tobacco Use Types Packs/Day Years Used Date Smoking Tobacco: Former Cigarettes Q uit: 05/15/2011 Smokeless Tobacco: Never Alcohol Use Standard Drinks/Week Comments No 0 (1 standard drink = 0.6 oz pur e alcohol) Comments Unknown Sex and Gender Information Value Date Recorded Sex Assigned at Not on file Legal Sex Female 4:04 PM EDT Gender Identity Female Sexual Orientation Not on file Last Filed Vital Signs Vital Sign Reading Time Taken Comments Blood Pressure - - Pulse - - Temperature 37 C (98.6 F) 11/05/2017 4:58 PM EDT Respiratory Rate - - Oxygen Saturation - - Inhaled Oxygen Concentration - - Weight 106.1 kg (234 lb) 11/05/2017 4:58 PM EDT Height 177.8 cm (5' 10 ) 11/05/2017 4:58 PM EDT Body Mass Index 33.58 11/05/2017 4:58 PM EDT Plan of Treatment Health Maintenance Due Date Last Done Comments HEPATITIS C VIRUS SCREENING 1972 TETANUS 1972 HIV SCREENING DISCUSSION 12/05/1987 HEP B VACCINE (1 of 3 - 19+ 3-dose series) 12/05/1991 TDAP (ADULT) 12/05/1991 CERVICAL CANCER SCREENING DISCUSSION 1993 LIPID SCREENING 2012 MAMMOGRAM SCREENING DISCUSSION 2012 COLORECTAL CANCER SCREENING DISCUSSION 2017 PNEUMOCOCCAL VACCINE SERIES (1 of 1 - PCV) 2022 ZOSTER (SHINGLES) VACCINE (1 of 2) 2022 COVID-19 VACCINE (1 - season) 2024 INFLUENZA VACCINE (#1) 2024 Insurance O PPO POS Member Subscriber Plan / Payer (Ef fective 2016-Present) Name:Rosey Castellano Relation to Subscriber:Spouse Name:JUANCHO CASTELLANO Date of :1900 (Home) Address: [address] [place] [address] Payer ID:[id number] (NAIC) Type:Not on file Address: [address] [place] [id number] Care Teams Employee Relations Specialist Relationship Specialty Start Date End Date Eamon Paz DO PCP - General Family Medicine 05/15/17
--- OUTSIDE RECORDS SUMMARY | 2025-01-31 13:29 | XMS_ITS | Clinical Summary ---
Author Organization [facility] Address [id number] [address] [place] [address] Care Team Providers Care Manager Adult Name Role Phone Eamon Paz DO Primary Care Provider [phone] Allergies Active Allergy Reactions Criticality Noted Date Comments Iodine 08/11/2017 Promethazine 08/11/2017 Medications celecoxib (CeleBREX) 200 mg capsule Take 200 mg by mouth 2 (two) times a day. Active buPROPion XL (WELLBUTRIN XL) 300 mg 24 hr tablet Take 300 mg by mouth daily. Active clonazePAM (KlonoPIN) 0.5 mg tablet Take 0.25 mg by mouth 2 (two) times a day as needed for seizures. Active traMADol (ULTRAM) 50 mg tablet Take 50 mg by mouth every 6 (six) hours as needed for pain. Active Social History Tobacco Use Types Packs/Day Years Used Date Smoking Tobacco: Former Smokeless Tobacco: Never Childcare Answer Date Recorded Childcare Unknown 10/07/2018 Employment Answer Date Recorded Employment Unknown 10/07/2018 Purpose - Life Answer Date Recorded Purpose and direction in life Unknown Comments Unknown Sex and Gender Information Value Date Recorded Sex Assigned at Not on file Legal Sex Female 11:55 AM EDT Gender Identity Not on file Sexual Orientation Not on file Last Filed Vital Signs Vital Sign Reading Time Taken Comments Blood Pressure 125/84 08/11/2017 7:34 PM EDT Pulse 87 08/11/2017 7:34 PM EDT Temperature 36.6 C (97.8 F) 08/11/2017 6:24 PM EDT Respiratory Rate 16 08/11/2017 7:34 PM EDT Oxygen Saturation 100% 08/11/2017 7:34 PM EDT Inhaled Oxygen Concentration - - Weight 106.5 kg (234 lb 14.4 oz) 08/11/2017 6:24 PM EDT Height 175.3 cm (5' 9 ) 08/11/2017 6:24 PM EDT Body Mass Index 34.69 08/11/2017 6:24 PM EDT Plan of Treatment Health Maintenance Due Date Last Done Comments Depression Screening 1984 Tobacco Screening 1984 Adult BMI Screening 1990 Pap Smear 1993 Zoster (Shingles) Vaccine (1 of 2) 2022 Influenza Vaccine 12/27/2024 DTaP,Tdap and Td Vaccines (2 - Td or Tdap) 12/03/2032 12/03/2022 Medical Devices Not on file Insurance Care Teams Manager Adult Relationship Specialty Start Date End Date Eamon Paz DO [address] [place] [id number] PCP - General 03/14/13
--- OUTSIDE RECORDS SUMMARY | 2025-01-31 13:29 | XMS_ITS | Clinical Summary ---
Author Organization [facility] Address [facility] [place] [address] Care Team Providers Care Senior Sql Dba Name Role Phone Eamon Paz DO Primary Care Provider [phone] Allergies Active Allergy Reactions Criticality Noted Date Comments Iodine Unknown 07/07/2017 Phenergan W/Dextromethorphan Unknown 018 Hydrocodone-Acetaminophen Unknown 07/07/2017 Medications celecoxib (CELEBREX) 200 mg capsule Take 200 mg by mouth twice daily. Active buPROPion XL (WELLBUTRIN XL) 300 mg 24 hr tablet Take 300 mg by mouth once daily. Active clonazePAM (KLONOPIN) 0.5 mg tablet Take 0.5 mg by mouth twice daily as needed. Active ISOMETHEPT/DICH LPHN/ACETAMINOP (ISOMETH-DICHLO RAL-ACETAMINOPH N ORAL) Take by mouth. Active traMADol (ULTRAM) 50 mg tablet Take 50 mg by mouth every 6 hours as needed. Active amoxicillin-cla vulanic acid (AUGMENTIN) 875-125 mg per tablet Take 1 tablet by mouth twice daily. 20 tablet 07/07/2017 Active fluticasone (FLONASE) 50 mcg/actuation nasal spray Use 2 Sprays in each nostril once daily. 1 Bottle 6 07/07/2017 Active Social History Tobacco Use Types Packs/Day Years Used Date Smoking Tobacco: Never Assessed Area Deprivation Index Answer Date Neftali rded National Score (1-100), lower number is lower ri sk Not on file 04/06/2020 State Score (1-10), lower number is lower risk N ot on file 04/06/2020 Data from: https://www.neighborhoodatlas.medicine.[facility].edu/. Last address used for calculation Not on file 04/06/2020 Comments Unknown Sex and Gender Information Value Date Recorded Sex Assigned at Not on file Legal Sex Female 2:00 PM EST Gender Identity Not on file Sexual Orientation Not on file Plan of Treatment Health Maintenance Due Date Last Done Comments Anxiety Screening 1990 Depression Screening 1990 HIV Screening 1990 Hepatitis C Screening 1990 DTaP,Tdap,Td Vaccine (1 - Tdap) 12/05/1991 Hepatitis B Vaccine (1 of 3 - 19+ 3-dose series) 12/04 Cervical Cancer Screening [address] Colonography 2017 Cologuard (FIT-DNA) 2017 Colonoscopy 2017 Colorectal Cancer Screening 2017 Diabetes Screening 2017 Fecal Occult Blood 2017 Lipid Screening 2017 Sigmoidoscopy 2017 Pneumococcal Vaccine: 50+ (1 of 1 - PCV) 2022 Shingrix Vaccine (1 of 2) 2022 Covid-19 Vaccine (1 - 2024- season) 2024 Influenza Vaccine (#1) 2024 Insurance Care Teams Senior Sql Dba Relationship Specialty Start Date End Date Eamon Paz DO [address] [place] [address] PCP - General Family Medicine 05/22/17
--- OUTSIDE RECORDS SUMMARY | 2025-01-31 13:29 | XMS_ITS | Patient Health Record ---
Author Organization [facility] Address [address] [place] [address] Care Team Providers Care Planer Hand Name Role Phone Escobar Duffy [phone] Allergies Allergen (clinical drug ingredient) Drug/Non Drug Allergy documented on EMR Reaction Allergy Type Onset Date Status lidocaine Unknown Drug Allergy Active iodine iodine topical Hives Drug Allergy Ac tive Vicodin hives and itching Drug Allergy Active Reason For Referral No Information Medications Medication SIG (Take, Route, Fr equency, Duration) Notes Start Date End Date Status CeleBREX Active Medrol Dosepak 4 mg as directed 10/01/2021 Active Wellbutrin Active Social History Tobacco Use: Social History Observation Description Date Details (start date - stop date) Never Smoker NA - NA Smoking History Question Answer Notes Smoking Status NonSmoker Problems Problem Type SNOMED Code ICD Code Onset Dates Problem Status W/U Status Risk Notes Problem [id number] Adhesive capsulitis of left shoulder (M75.02) Active confirmed Problem 988758730056593 Left lateral epicondylitis (M77.12) Active confirmed Problem [id number] Lateral epicondylitis, right elbow (M77.11) Active confirmed Problem [id number] Acute pain of left shoulder (M25.512) Active confirmed Plan Of Treatment No Information Insurance Providers Payer Name Payer Address Payer Phone Subscriber Number Group Number Insured Name Patient Relationship to Insured Coverage Start Date Coverage End Date Medical [facility] Jose Mccullough [address] [place] [address] [id number] ANDREA FANG Spouse - patient is the spouse of the insured Medical (General) History Medical History History ICD Code Depression: Yes Anxiety: Yes Drug Allergies: Yes Surgical History Surgery Date(Month/Year) Total Rt Knee Replacement Intermal fixator removal Rt Leg exterma; fixator 04/2010 Lower Back fusion 12/15 Intermal Fixator Rt wrist Tonsils
--- OUTSIDE RECORDS SUMMARY | 2025-01-31 13:29 | XMS_ITS | Encounter Summary ---
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[employer] [facility] Not on file Not on fi le Not on file documented as of this encounter Plan of Treatment Upcoming Encounters Date Type Department Care Team ([facility] Contact Info) Description 02/15/2025 10:50 AM EDT Office Visit [facility] [address] [place] [address] Jose Alberto Keyes DO [address] [place] [address] [address] [place], [place] [address] documented as of this encounter Visit Diagnoses Not on filedocumented in this encounter Care Teams Forestry And Wildlife Manager Relationship Specialty Start Date End Date Eamon Paz MD [address] [place], [place] [id number] PCP - General Family Medicine 01/21/23 Tim Pritchard DO [address] [place] [address] Otolaryngology 03/15/24 documented as of this encounter
--- OUTSIDE RECORDS SUMMARY | 2025-01-31 13:29 | XMS_ITS | Patient Health Record ---
Author Organization [facility] [place] Address [address] [place] [address] Care Team Providers Care Physiotherapy Assistant Name Role Phone Eamon Paz DO Primary Care Provider UnavailKarrie Bravo Unavailable [phone] Anais Malin Unavailable [phone] ANAIS MALIN Unavailable [phone] Reason For Referral No Information Problems Problem Type SNOMED Code ICD Code Onset Dates Problem Status W/U Status Risk Notes Problem Numbness (07250794) Numbness (R20.0) Active confirmed Encounters Encounter Location Date Provider Diagnosis [facility] [address] [place] [address] 07/01/2024 Anais Malin Cellulitis of left toe L03.032 ; Other skin changes due to chronic exposure to nonionizing radiation L57.8 ; Other follicular cysts of the skin and subcutaneous tissue L72.8 and Neoplasm of uncertain behavior of skin D48.5 [facility] [address] [place] [address] 08/26/2024 Anais Malin Other skin changes due to chronic exposure to nonionizing radiation L57.8 ; Encounter for removal of sutures Z48.02 and Actinic keratosis L57.[address] [facility] [address] [address] 10/14/2024 Anais Malin Actinic keratosis L57.0 [facility] [address] [place] [address] 11/11/2024 ANAIS MALIN Actinic keratosis L57.0 [facility] [address] [place] [address] [place] [address] 08/12/2024 Anais Malin Encounter for procedure for purposes other than remedying health state, unspecified Z41.9 [facility] [address] [place] [address] 02/10/2024 Karrie Juarez [facility] [address] [place] [address] 08/12/2024 Anais Malin Neoplasm of uncertai n behavior of skin D48.5 ; Other specified erythematous conditions L53.8 ; Other disturbances of skin sensation R20.8 and Actinic keratosis L57.0 Assessments Encounter Date Diagnosis (ICD Code) Assessment Notes Treatment Notes Treatment Clinical Notes Section Notes 07/01/2024 Cellulitis of left toe (ICD-10 - L03.032) 08/12/2024 Neoplasm of uncertain behavior of skin (ICD-10 - D48.5) 08/12/2024 Encounter for procedure for purposes other than remedying health state, unspecified (ICD-10 - Z41.9) 08/26/2024 Other skin changes due to chronic exposure to nonionizing radiation (ICD-10 - L57.8) 10/14/2024 Actinic keratosis (ICD-10 - L57.0) 11/11/2024 Actinic keratosis (ICD-10 - L57.0) 08/26/2024 Encounter for removal of sutures (ICD-10 - Z48.02) 08/12/2024 Other specified erythematous conditions (ICD-10 - L53.8) 07/01/2024 Other skin changes due to chronic exposure to nonionizing radiation (ICD-10 - L57.8) 07/01/2024 Other follicular cysts of the skin and subcutaneous tissue (ICD-10 - L72.8) 08/12/2024 Other disturbances of skin sensation (ICD-10 - R20.8) 08/26/2024 Actinic keratosis (ICD-10 - L57.0) 08/12/2024 Actinic keratosis (ICD-10 - L57.0) 07/01/2024 Neoplasm of uncertain behavior of skin (ICD-10 - D48.5) Plan Of Treatment No Information Insurance Providers Payer Name Payer Address Payer Phone Subscriber Number Group Number Insured Name Patient Relationship to Insured Coverage Start Date Coverage End Date MMO [address] [place], [place] [id number] Juancho Castellano Spouse - patient is the spouse of the insured [id number]
== END 2025-01-31 13:26 | disposition home or self-care (01) ==
LOC: PST 13:26
PROVIDERS: PCP Family Medicine; Visit Provider Obstetrics & Gynecology
DX: Z01.818 Encounter for other preprocedural examination (principal); N92.0 Excessive and frequent menstruation with regular cycle

== ENCOUNTER 2025-02-04 07:35 | Day surgery (SDC) | payer OTHER, SELFPAY ==
[2024-12-22 11:39] VITALS: BP 118/77; PULSE 83; TEMP 36.4; O2SAT 98; BMI 24.6
--- OUTSIDE RECORDS SUMMARY | 2025-02-04 07:38 | XMS_ITS | Clinical Summary ---
Author Organization [facility] Address [address] [place] [address] Care Team Providers Care Geometrician Name Role Phone Eamon Paz Primary Care Provider [phone] Allergies Active Allergy Reactions Criticality Noted Date [...] fective 2016-Present) Name:Rosey Castellano Relation to Subscriber:Spouse Name:ANDREA CASTELLANO Date of :1900 (Home) Address: [address] [place] [address] Payer ID:[id number] (NAIC) Type:Not on file Address: [address] [place] [id number] Care Teams Geometrician Relationship Specialty Start Date End Date Eamon Paz DO PCP - General Family Medicine 05/15/17
[2025-02-04 07:43] VITALS: BP 108/69; PULSE 82; TEMP 36.2; O2SAT 96; BMI 23.8
[2025-02-04 07:43] LABS: Hematocrit 39.2 % (36.0-48.0); Hemoglobin 13.5 g/dL (12.0-16.0); Immature Granulocytes Abs Auto 0.01 10^3/uL (0.00-0.03); Immature Granulocytes Pct Auto 0.2 % (0.0-0.5); Lymphocytes Absolute Auto 1.3 10^3/uL (1.2-3.8); Mean Corpuscular HGB Conc 34.4 g/dL (29.9-35.2); Mean Corpuscular Hemoglobin 31.3 pg (26.7-34.0); Mean Corpuscular Volume 90.7 fL (81.0-99.0); Platelet Count 250 10^3/uL (150-450); Red Blood Count 4.32 10^6/uL (4.20-5.40); White Blood Count 5.7 10^3/uL (4.0-11.0)
--- NOTE | 2025-02-04 10:05 | PM.ONB ---
Brief Operative Note Date of procedure: 02/04/25 Pre-op diagnosis general: pmb Post-op diagnosis: same as pre-op Procedure: NAME OF PROCEDURE: [ D&c hysteroscopy with myosure] PROCEDURE: The patient was taken back to the Operating Room where she was prepped and draped in normal sterile fashion after being placed under general anesthesia without difficulty. She was also placed in the dorsal lithotomy position. A weighted speculum was placed in the patient?s vagina. The anterior lip of the cervix was identified and grasped with a single tooth tenaculum. The patient?s uterus was then sounded roughly to [? 8] cm. The patient was then gently dilated using Hegar dilators. The hysteroscope was passed through the patient?s cervix into the uterus. Both ostia were identified. fluffy appearing endometrium. No gross evidence of malignancy, no gross evidence of polyps or fibroids. The myosure apparatus was placed through the scope, The myosure was engaged and endometrial curretting were removed along with endometrial polyp, The hysteroscope was then removed from the uterus. The endometrial curettings were sent out to pathology. The single tooth tenaculum was then removed from the patient's anterior lip of the cervix where excellent hemostasis was noted. All instruments were removed from the patient?s vagina. The patient tolerated the procedure well. Sponge, lap and needle counts were correct times two. The patient was taken to the Recovery Room in stable condition.Room in stable condition. Anesthesia: MAC Surgeon: Jose Alberto Keyes Estimated blood loss (mL): 5 Pathology: other (endometrial currettings) Condition: stable Disposition: floor Urinary Catheter Management Urinary Catheter Management Urethral: Cath placed during this visit: no
[2025-02-04 10:11] VITALS: BP 111/63; PULSE 76; TEMP 36.2; O2SAT 96
[2025-02-04 10:24] VITALS: BP 115/79; PULSE 66; O2SAT 98
[2025-02-04 10:41] VITALS: BP 114/67; PULSE 70; O2SAT 97
[2025-02-04 10:56] VITALS: BP 110/50; PULSE 71; O2SAT 99
== END 2025-02-04 11:12 | disposition home or self-care (01) ==
LOC: SURGOUT 07:36
PROVIDERS: PCP Family Medicine; Visit Provider Obstetrics & Gynecology
PROC: (CPT 952; principal; 2025-02-04 08:45)
DX: N95.0 Postmenopausal bleeding (principal); N84.0 Polyp of corpus uteri; Z87.891 Personal history of nicotine dependence; Z87.442 Personal history of urinary calculi; G25.81 Restless legs syndrome
CPT/HCPCS: 58558; 36415; 85025; J1885; J2250; J2405; J2704; J3010